=== PATIENT | female | born 1945 | race Caucasian/White ===

== ENCOUNTER 2023-04-29 09:53 | Inpatient (IN) | payer MEDICARE ==
[2023-04-29] MEDS ORDERED: Folic Acid 50 MG/10 ML MDV IV SCH (13:00)
[2023-04-29] MEDS ORDERED: MVI, Adult with Vitamin K 10 ML in Sodium Chloride 0.9% 1,000 ML IV ONE ×2 (13:00)
[2023-04-29 13:01] LABS: BASOPHILS PERCENT AUTO 0.3 % (0.1-1.3); EOSINOPHILS ABSOLUTE AUTO 0.07 K/uL (0.00-0.40); EOSINOPHILS PERCENT AUTO 0.9 % (0.0-5.4); HEMATOCRIT 40.5 % (34.3-46.0); IMMATURE GRAN PERCENT AUTO 0.3 % (0.0-0.7); LYMPHOCYTES PERCENT AUTO 17.7 % (11.4-47.7); MEAN CORPUSCULAR HEMOGLOBIN 29.9 pg (31.6-35.5); MEAN CORPUSCULAR HGB CONC 32.1 g/dL (31.6-35.5); MEAN CORPUSCULAR VOLUME 93.1 fL (81.4-99.0); MONOCYTES ABSOLUTE AUTO 0.72 K/uL (0.20-0.90); MONOCYTES PERCENT AUTO 9.1 % (3.3-12.6); NEUTROPHILS ABSOLUTE AUTO 5.69 K/uL (1.0-7.6); NEUTROPHILS PERCENT AUTO 71.7 % (40.0-78.1); PLATELET COUNT,PLT 296 K/uL (130-375); RED BLOOD CELL COUNT 4.35 M/uL (3.77-5.24); WHITE BLOOD CELL COUNT,WBC 7.9 K/uL (3.2-11.0)
[2023-04-29] MEDS ORDERED: Acetaminophen 500 MG Tab PO PRN (13:11)
[2023-04-29 13:13] LABS: BASOPHILS ABSOLUTE AUTO 0.02 K/uL (0.00-0.10); IMMATURE GRAN ABSOLUTE AUTO 0.02 K/uL (0.00-0.23)
[2023-04-29 13:20] LABS: PROTHROMBIN TIME 10.1 sec (9.2-10.6)
[2023-04-29] MEDS: Atenolol 25 MG Tab PO SCH (13:20)
[2023-04-29 13:22] LABS: IRON,FE 44 ug/dL (50-170); PERCENT FE SATURATION 13 % (20-55); TOTAL IRON BINDING CAPACITY 350 ug/dl (250-450)
[2023-04-29] MEDS: Pantoprazole 40 MG Vial IVPUSH SCH (13:27)
[2023-04-29] MEDS: Folic Acid 1 MG in Sodium Chloride 0.9% 50 ML IV SCH (13:27)
[2023-04-29] MEDS: Ondansetron 4 MG/2 ML SDV IVPUSH PRN ×2 (13:45→19:15)
[2023-04-29 13:55] LABS: A/G RATIO 0.8 (1.2-2.2); ALANINE AMINOTRANSFERASE,ALT 15 U/L (12-78); ALBUMIN 3.2 g/dL (3.4-5.0); ALKALINE PHOSPHATASE 118 U/L (46-116); ASPARTATE AMNIOTRANSFERASE,AST 17 U/L (15-37); BILIRUBIN TOTAL 0.4 mg/dL (0.2-1.0); BLOOD UREA NITROGEN,BUN 13 mg/dL (7-18); CALCIUM 8.5 mg/dL (8.5-10.1); CARBON DIOXIDE,CO2 28 mmol/L (21-32); CHLORIDE,CL 102 mmol/L (100-108); CREATININE 0.8 mg/dL (0.6-1.0); EST CRCL DRUG DOSING (CG) 55.45 mL/min; ESTIMATED GFR 75 mL/min (>60); FERRITIN 28 ng/ml (8-388); GLUCOSE RANDOM 97 mg/dL (74-106); MAGNESIUM 1.7 mg/dL (1.8-2.4); PHOSPHORUS 3.8 mg/dL (2.5-4.9); PROTEIN TOTAL,TP 7.3 g/dL (6.4-8.2); SODIUM,NA 138 mmol/L (140-148)
[2023-04-29] MEDS ORDERED: Magnesium Sulfate/Water 2 GM in Premix Bag 1 BAG IV ONE (14:15)
[2023-04-29] MEDS: Thiamine 100 MG in Sodium Chloride 0.9% 100 ML IV SCH (14:30)
[2023-04-29] MEDS ORDERED: Sodium Ferric Gluconate Cmplex 250 MG in Sodium Chloride 0.9% 100 ML IV ONE (16:15)
[2023-04-29 18:31] LABS: CORONAVIRUS COVID-19 NAA NEGATIVE (NEGATIVE); INFLUENZA A NAA NEGATIVE (NEGATIVE); INFLUENZA B NAA NEGATIVE (NEGATIVE); RESPIRATORY SYNCYTIAL VIR NAA NEGATIVE (NEGATIVE)
[2023-04-30] MEDS: Ondansetron 4 MG/2 ML SDV IVPUSH PRN (03:32)
[2023-04-30] MEDS: Lactated Ringers 1,000 ML IV SCH ×2 (03:34→13:21)
[2023-04-30 04:50] LABS: HEMOGLOBIN 12.9 g/dL (11.2-15.5); MEAN CORPUSCULAR HGB CONC 32.3 g/dL (31.6-35.5); RED BLOOD CELL COUNT 4.3 M/uL (3.77-5.24); WHITE BLOOD CELL COUNT,WBC 10.3 K/uL (3.2-11.0)
[2023-04-30 05:09] LABS: ANION GAP 10.8 mmol/L (5.0-14.0); CALCIUM 8.2 mg/dL (8.5-10.1); CREATININE 0.8 mg/dL (0.6-1.0); EST CRCL DRUG DOSING (CG) 55.45 mL/min; PHOSPHORUS 3.7 mg/dL (2.5-4.9); POTASSIUM,K 3.8 mmol/L (3.6-5.2)
[2023-04-30] MEDS ORDERED: Bupivacaine 0.5% 50 ML MDV ONE (05:14)
[2023-04-30] MEDS ORDERED: Lidocaine 1% with EPINEPHrine 1:100,000 50 ML MDV ONE (05:14)
[2023-04-30] MEDS ORDERED: Bupivacaine 0.5%/EPINEPHrine 1:200,000 50 ML MDV ONE (05:28)
[2023-04-30] MEDS ORDERED: fentaNYL 250 MCG/5 ML SDV ONE (05:37)
[2023-04-30] MEDS ORDERED: Succinylcholine 200 MG/10 ML MDV ONE (05:38)
[2023-04-30] MEDS ORDERED: Rocuronium 50 MG/5 ML Vial ONE (05:38)
[2023-04-30] MEDS ORDERED: Glycopyrrolate 0.2 MG/ML 5 ML MDV ONE (05:38)
[2023-04-30] MEDS ORDERED: Neostigmine Methylsulfate 10 MG/10 ML MDV ONE (05:38)
[2023-04-30] MEDS ORDERED: Propofol 200 MG/20 ML SDV ONE (05:38)
[2023-04-30] MEDS ORDERED: Ondansetron 4 MG/2 ML SDV ONE (05:38)
[2023-04-30] MEDS ORDERED: Dexamethasone 4 MG/ML SDV ONE (05:38)
[2023-04-30] MEDS ORDERED: ceFAZolin 2 GM in Premix Bag 1 BAG IV ONE (05:57)
[2023-04-30] MEDS ORDERED: ceFAZolin 2 GM Vial ONE (06:01)
[2023-04-30] MEDS ORDERED: Sodium Chloride 0.9% 50 ML ONE (06:05)
[2023-04-30] MEDS ORDERED: Lactated Ringers 1,000 ML ONE (07:04)
[2023-04-30] MEDS ORDERED: Sodium Chloride 0.9% 10 ML ONE (07:05)
[2023-04-30] MEDS ORDERED: ePHEDrine 50 MG/ML SDV ONE (07:05)
[2023-04-30] MEDS: Acetaminophen 1,000 MG in Premix Bag 1 BAG IV SCH ×3 (09:46→23:53)
[2023-04-30] MEDS: Atenolol 25 MG Tab PO SCH (09:49)
[2023-04-30] MEDS: Pantoprazole 40 MG Vial IVPUSH SCH (09:50)
[2023-04-30] MEDS: Folic Acid 1 MG in Sodium Chloride 0.9% 50 ML IV SCH ×2 (13:22→14:32)
[2023-04-30] MEDS: Thiamine 100 MG in Sodium Chloride 0.9% 100 ML IV SCH ×2 (14:33→14:39)
[2023-04-30] MEDS ORDERED: Lactated Ringers 1,000 ML IV SCH (18:30)
[2023-05-01] MEDS: hydrALAZINE 20 MG/ML SDV IVPUSH PRN (00:06)
[2023-05-01 06:10] LABS: HEMATOCRIT 34.6 % (34.3-46.0); MEAN CORPUSCULAR HGB CONC 31.8 g/dL (31.6-35.5); MEAN CORPUSCULAR VOLUME 94.3 fL (81.4-99.0); RED BLOOD CELL COUNT 3.67 M/uL (3.77-5.24)
[2023-05-01 06:29] LABS: CALCIUM 8.2 mg/dL (8.5-10.1); CREATININE 0.9 mg/dL (0.6-1.0); EST CRCL DRUG DOSING (CG) 49.29 mL/min; MAGNESIUM 1.8 mg/dL (1.8-2.4); PHOSPHORUS 3.3 mg/dL (2.5-4.9)
[2023-05-01] MEDS: Acetaminophen 1,000 MG in Premix Bag 1 BAG IV SCH (08:12)
[2023-05-01] MEDS: Pantoprazole 40 MG Vial IVPUSH SCH (09:40)
[2023-05-01] MEDS: Atenolol 25 MG Tab PO SCH (09:42)
[2023-05-01] MEDS: Thiamine 100 MG in Sodium Chloride 0.9% 100 ML IV SCH (14:28)
[2023-05-01] MEDS: Folic Acid 1 MG in Sodium Chloride 0.9% 50 ML IV SCH (14:28)
[2023-05-01] MEDS: Enoxaparin 40 MG/0.4 ML Syringe SUBCUT SCH (14:37)
[2023-05-01] MEDS: Acetaminophen 500 MG Tab PO SCH (20:48)
[2023-05-01] MEDS: Multivitamins with Iron Tab.Chew CHEW SCH (20:48)
[2023-05-02] MEDS: Acetaminophen 500 MG Tab PO SCH ×3 (05:22→21:10)
[2023-05-02 06:21] LABS: HEMATOCRIT 35.1 % (34.3-46.0); HEMOGLOBIN 11.2 g/dL (11.2-15.5); MEAN CORPUSCULAR HEMOGLOBIN 30.1 pg (31.6-35.5); MEAN CORPUSCULAR HGB CONC 31.9 g/dL (31.6-35.5); MEAN CORPUSCULAR VOLUME 94.4 fL (81.4-99.0); RED BLOOD CELL COUNT 3.72 M/uL (3.77-5.24); WHITE BLOOD CELL COUNT,WBC 7.1 K/uL (3.2-11.0)
[2023-05-02] MEDS: hydrALAZINE 20 MG/ML SDV IVPUSH PRN (06:25)
[2023-05-02 06:27] LABS: CALCIUM 8.3 mg/dL (8.5-10.1); CREATININE 0.7 mg/dL (0.6-1.0); EST CRCL DRUG DOSING (CG) 63.37 mL/min; MAGNESIUM 1.7 mg/dL (1.8-2.4); PHOSPHORUS 3.2 mg/dL (2.5-4.9); POTASSIUM,K 3.5 mmol/L (3.6-5.2)
[2023-05-02 06:36] LABS: ANION GAP 10.5 mmol/L (5.0-14.0)
[2023-05-02 06:55] LABS: VITAMIN B1,WHOLE BLOOD 168 nmol/L (70-180)
[2023-05-02] MEDS: Atenolol 25 MG Tab PO SCH (08:36)
[2023-05-02] MEDS: Pantoprazole 40 MG Vial IVPUSH SCH (08:41)
[2023-05-02] MEDS ORDERED: Potassium Chloride 10 MEQ in Premix Bag 1 BAG IV ONE (10:00)
[2023-05-02] MEDS ORDERED: Magnesium Sulfate/Water 2 GM in Premix Bag 1 BAG IV ONE (11:00)
[2023-05-02] MEDS ORDERED: Atenolol 25 MG Tab PO ONE (11:30)
[2023-05-02] MEDS: Enoxaparin 40 MG/0.4 ML Syringe SUBCUT SCH (13:05)
[2023-05-02] MEDS: Thiamine 100 MG in Sodium Chloride 0.9% 100 ML IV SCH (14:00)
[2023-05-02] MEDS: Folic Acid 1 MG in Sodium Chloride 0.9% 50 ML IV SCH (14:34)
[2023-05-02 18:08] LABS: VITAMIN A (RETINOL) 0.46 mg/L (0.30-1.20); VITAMIN A (RETINYL PALMITATE) <0.02 mg/L (0.00-0.10); VITAMIN A,SER/PLA - INTERP Normal; VITAMIN E (ALPHA-TOCOPHEROL) 11.2 mg/L (5.5-18.0); VITAMIN E (GAMMA-TOCOPHEROL) 0.5 mg/L (0.0-6.0)
[2023-05-02] MEDS: Multivitamins with Iron Tab.Chew CHEW SCH (21:10)
[2023-05-03 04:55] LABS: HEMOGLOBIN 10.6 g/dL (11.2-15.5); MEAN CORPUSCULAR HEMOGLOBIN 29.9 pg (31.6-35.5); MEAN CORPUSCULAR HGB CONC 32.1 g/dL (31.6-35.5); MEAN CORPUSCULAR VOLUME 93.2 fL (81.4-99.0); RED BLOOD CELL COUNT 3.54 M/uL (3.77-5.24); WHITE BLOOD CELL COUNT,WBC 6.1 K/uL (3.2-11.0)
[2023-05-03 05:17] LABS: ANION GAP 9.1 mmol/L (5.0-14.0); CALCIUM 8.1 mg/dL (8.5-10.1); CREATININE 0.7 mg/dL (0.6-1.0); EST CRCL DRUG DOSING (CG) 63.37 mL/min; MAGNESIUM 1.9 mg/dL (1.8-2.4); PHOSPHORUS 3.2 mg/dL (2.5-4.9); POTASSIUM,K 3.7 mmol/L (3.6-5.2)
[2023-05-03] MEDS: Acetaminophen 500 MG Tab PO SCH (05:33)
[2023-05-03] MEDS ORDERED: Pantoprazole 40 MG Tab.CR PO SCH (07:30)
[2023-05-03] MEDS ORDERED: Thiamine 100 MG Tab PO SCH (09:00)
[2023-05-03] MEDS ORDERED: Atenolol 25 MG Tab PO SCH (09:00)
[2023-05-03] MEDS ORDERED: Folic Acid 1 MG Tab PO SCH (09:00)
[2023-05-03 12:29] LABS: VITAMIN B6 PYRIDOXAL 5-PHOSPH 40.8 nmol/L (20.0-125.0)
[2023-05-03 13:00] LABS: VITAMIN K1 0.26 nmol/L (0.22-4.88)
[2023-05-05 12:24] LABS: NICOTINAMIDE 35 ng/mL; NICOTINIC ACID None Det ng/mL
== END 2023-05-03 12:09 | disposition home or self-care (01) | DRG 354 ==
LOC: JP.MS 11:12
PROVIDERS: ADMIT Student in an Organized Health Care Education/Training Program; ATTEND Student in an Organized Health Care Education/Training Program
PROC: 0WUF4JZ Supplement Abdominal Wall with Synthetic Substitute, Percutaneous Endoscopic Approach (ICD-10-PCS; principal; 2023-04-30 07:00)
DX: K56.51 Intestinal adhesions [bands], with partial obstruction (principal); R18.8 Other ascites; K43.9 Ventral hernia without obstruction or gangrene; D50.9 Iron deficiency anemia, unspecified; M19.90 Unspecified osteoarthritis, unspecified site; I10 Essential (primary) hypertension; E87.6 Hypokalemia; E83.42 Hypomagnesemia; Z79.82 Long term (current) use of aspirin; Z79.899 Other long term (current) drug therapy; Z98.890 Other specified postprocedural states; Z11.52 Encounter for screening for COVID-19
CPT/HCPCS: 0241U; 36415; 74018; 80048; 80053; 82180; 82306; 82607; 82728; 83550; 83605; 83735; 84100; 84207; 84425; 84446; 84484; 84590; 84591; 84597; 85018; 85025; 85027; 85610; 88302; 93005; 97161; 97535; A9270-GY; C9113; J0131; J0330; J0360; J0690; J1100; J1650; J2405; J2704; J2710; J2916; J3010; J3411; J3475; J3480; J3490; J7030; J7120